=== PATIENT | female | born 1995 | race Caucasian/White ===

== ENCOUNTER 2021-05-13 19:51 | Emergency (ER) | payer OTHER ==
[~2021-05-13 19:51] MED LIST: PHENERGAN25 M1 PO
[2021-05-13 20:13] LABS: BASOPHIL 0.4 % (0-2); HCT 43.2 % (37.0-47.0); HGB 14.8 g/dl (12.5-16.0); LYMPHOCYTE 8.4 % (15-48); MCH 31.5 pg (25.0-31.0); MCHC 34.3 g/dL (32.0-36.0); MCV 91.9 fL (78.0-100.0); MONOCYTE 9.8 % (0-12); MPV 12.4 fL (6.0-9.5); NRBC 0; PLT 167 K/uL (150-400); RDW 12.2 % (11.5-14.0); WBC 12.5 K/uL (4.0-10.5)
[2021-05-13 20:27] LABS: ALBUMIN 4.4 g/dL (3.4-5.0); BILIRUBIN - TOTAL 1.2 mg/dL (0.2-1.0); BUN/CREAT RATIO (CALC) 19.2 RATIO; CREATININE 0.78 mg/dL (0.51-0.95); GLOBULIN (CALCULATION) 3.8 g/dL; POTASSIUM 3.8 mmol/L (3.5-5.1); TOTAL PROTEIN 8.2 g/dL (6.4-8.2)
[2021-05-13] MEDS ORDERED: ONDANSETRON ODT4 MG PO (21:04)
[2021-05-13] MEDS ORDERED: PHENERGAN25 M1 PO (21:04)
== END 2021-05-13 21:19 | disposition home or self-care (01) ==
LOC: FER 19:51
PROVIDERS: Emergency Medicine
DX: R11.2 Nausea with vomiting, unspecified (principal); R19.7 Diarrhea, unspecified
CPT/HCPCS: 36415; 80053; 83690; 85025; J1885; J2405; J7030; Q0169

== ENCOUNTER 2021-08-31 14:49 | Emergency (ER) | payer OTHER ==
[~2021-08-31 14:49] MED LIST changes: +ONDANSETRON ODT4 MG PO
[2021-08-31 16:18] LABS: BASOPHIL 0.2 % (0-2); BILIRUBIN NEGATIVE (NEGATIVE); BLOOD 1+ Ery/uL (NEGATIVE); CLARITY CLEAR (CLEAR); COLOR YELLOW (YELLOW); EOSINOPHIL 0.2 % (0-5); GLUCOSE (U) NORMAL (NORMAL); HCT 40.8 % (37.0-47.0); HGB 13.4 g/dl (12.5-16.0); LEUKOCYTES NEGATIVE Leu/uL (NEGATIVE); MCH 31.8 pg (25.0-31.0); MCHC 32.8 g/dL (32.0-36.0); MCV 96.7 fL (78.0-100.0); MONOCYTE 18.9 % (0-12); MPV 12.4 fL (6.0-9.5); NEUTROPHIL 72.2 % (41-80); NITRITE NEGATIVE (NEGATIVE); NRBC 0; PLT 117 K/uL (150-400); PROTEIN TRACE (LOW) mg/dL (NEGATIVE); RBC 4.22 M/uL (4.20-5.40); RDW 13.6 % (11.5-14.0); SPECIFIC GRAVITY 1.025 (1.001-1.030); UROBILINOGEN 0.2 mg/dL (0.2-1.0); WBC 4.4 K/uL (4.0-10.5)
[2021-08-31 16:30] LABS: BACTERIA 1+
[2021-08-31 16:36] LABS: LACTIC ACID 0.9 mmol/L (0.4-1.9)
[2021-08-31 16:50] LABS: INFLUENZA A NAA NEGATIVE (NEGATIVE)
[2021-08-31 16:51] LABS: CORONAVIRUS 2019 SARS-COV-2 POSITIVE (NEGATIVE)
[2021-08-31] MEDS ORDERED: ONDANSETRON ODT4 MG PO (16:57)
[2021-08-31 17:00] LABS: ALBUMIN 3.5 g/dL (3.4-5.0); BILIRUBIN - TOTAL 0.3 mg/dL (0.2-1.0); BUN/CREAT RATIO (CALC) 7.7 RATIO; CREATININE 0.78 mg/dL (0.51-0.95); GLOBULIN (CALCULATION) 3.4 g/dL; POTASSIUM 3.8 mmol/L (3.5-5.1); TOTAL PROTEIN 6.9 g/dL (6.4-8.2)
== END 2021-08-31 17:54 | disposition home or self-care (01) ==
LOC: FER 14:49
PROVIDERS: Emergency Medicine
DX: U07.1 COVID-19 (principal); R10.2 Pelvic and perineal pain
CPT/HCPCS: 36415; 71045; 80053; 81001; 83605; 83690; 84145; 85025; 87040; 87088; 93005; J2405; J7030; U0002